=== PATIENT | female | born 1950 | race Caucasian/White ===

== ENCOUNTER 2021-12-14 08:44 | Outpatient (CLI) | payer OTHER | END 2021-12-14 08:47 | disposition home or self-care (01) | LOC: NUCLEAR 08:44 | PROVIDERS: ATTEND Internal Medicine Rheumatology | DX: M06.4 Inflammatory polyarthropathy (principal); C85.90 Non-Hodgkin lymphoma, unspecified, unspecified site | CPT/HCPCS: 78315; A9503 ==

== ENCOUNTER 2022-02-24 13:18 | Emergency (ER) | payer OTHER ==
[~2022-02-24] VITALS: Ht 167.6 cm; Wt 56.7 kg
[2022-02-24] MEDS ORDERED: HYDROXYCHLOROQ200 MG PO (13:30)
[2022-02-24] MEDS ORDERED: FOLIC ACID1 MG PO (13:30)
[2022-02-24] MEDS ORDERED: CLONAZEPAM2 MG PO (13:30)
[2022-02-24] MEDS ORDERED: METHOTREXATE2.5 MG PO (13:31)
[2022-02-24] MEDS ORDERED: WARFARIN SODIUM6 MG PO (13:31)
[2022-02-24] MEDS ORDERED: RAYOS5 MG PO (13:32)
[2022-02-24] MEDS ORDERED: PEPCID AC20 MG PO (22:02)
[2022-02-24] MEDS ORDERED: METRONIDAZOLE500 MG PO (22:02)
[2022-02-24] MEDS ORDERED: CIPRO500 MG PO (22:02)
== END 2022-02-24 22:14 | disposition home or self-care (01) ==
LOC: ER 13:18
DX: K52.9 Noninfective gastroenteritis and colitis, unspecified (principal); K57.30 Diverticulosis of large intestine without perforation or abscess without bleeding

== ENCOUNTER 2025-06-18 08:51 | Emergency (ER) | payer OTHER ==
[~2025-06-18] VITALS: Ht 170.2 cm; Wt 57.2 kg
[~2025-06-18 08:51] MED LIST: CIPRO500 MG PO; CLONAZEPAM2 MG PO; FOLIC ACID1 MG PO; HYDROXYCHLOROQ200 MG PO; METHOTREXATE2.5 MG PO; METRONIDAZOLE500 MG PO; PEPCID AC20 MG PO; RAYOS5 MG PO; WARFARIN SODIUM6 MG PO
[2025-06-18] MEDS ORDERED: DEXAMETHASONE SODIUM PHOSPHATE 4 MG/ML VIAL ONE (10:55)
[2025-06-18] MEDS ORDERED: ACETAMINOPHEN 500 MG GEL..CAP PO ONE (11:00)
[2025-06-18] MEDS ORDERED: DEXAMETHASONE SODIUM PHOSPHATE 4 MG/ML VIAL IM ONE (11:00)
[2025-06-18 11:47] LABS: BASO % 0.7 % (0.1-1.2); EOS # 0.07 (0.04-0.54); EOS % 1.0 % (0.7-7.0); LYMPH # 1.24 (1.18-3.74); LYMPH % 17.9 % (19.3-53.1); MEAN PLATELET VOLUME 10.20 fl (9.4-12.4); MONO # 0.55 (0.24-0.82); MONO % 7.9 % (4.7-12.5); NEUT # 4.99 (1.56-6.13); NEUT % 72.1 % (34.0-71.1); RED CELL DISTRIBUTION WIDTH 14.8 % (11.6-14.4)
[2025-06-18 11:54] LABS: URINE APPEARANCE Clear; URINE BILIRRUBIN Negative (NEGATIVE); URINE BLOOD Negative; URINE COLOR Yellow; URINE GLUCOSE Negative (NEGATIVE); URINE KETONE Negative (NEGATIVE); URINE LEUKOCYTE Moderate; URINE NITRATE Negative; URINE PROTEIN Trace (NEGATIVE); URINE UROBILINOGEN 0.2 E.U./dl
[2025-06-18 11:55] LABS: URINE BACTERIA 333.6 uL (0.0-1933); URINE CAST 3.95 uL (0.0-1.40); URINE EPITHELIAL CELLS 33.8 uL (0.0-38.8); URINE RBC 2.3 uL (0.0-20.8); URINE WBC 60.6 uL (0.0-23.2)
[2025-06-18 12:13] LABS: INR 1.13
[2025-06-18 12:44] LABS: ALT/SGPT 44 U/L (12-78); AST/SGOT 43 U/L (15-37); BILIRUBIN TOTAL 0.41 mg/dL (0.3-1.2); BUN CREA RATIO 18 (7.0-25.0); CREATININE SERUM 1.65 mg/dL (0.55-1.02); GFR 30.16; GLOBULINA 3.4 G/DL (2.4-3.5); GLUCOSE FASTING 89 mg/dL (65-100); OSMOLALITY SERUM 289 MOSM/KG (275-295); PHOSPHOKINASE CREATININE 86 U/L (26-192); TSH 2.920 uIU/mL (0.358-3.74)
== END 2025-06-18 16:57 | disposition home or self-care (01) ==
LOC: ER 08:52
DX: R00.2 Palpitations (principal); R42 Dizziness and giddiness
CPT/HCPCS: 36415; 70450; 71046; 93005; 96372; 99284; J1100